=== PATIENT | female | born 1990 | race Caucasian/White ===

== ENCOUNTER 2016-09-15 08:06 | Emergency (ER) | payer MEDICAID ==
--- NOTE | 2016-10-03 15:51 | ER ---
ADMIT: 09/15/2016 RM/LOC: [facility] MR#: [id number] [address] [id number] [place] [address] [address] Emergency Room Report SEX: F AGE: 26 : 1990 DATE: 09/15/2016 This 26-year-old, 19 week female comes to the Emergency Department with abdominal pain primarily in the right upper quadrant, worsened with deep inspiration. Described it as sharp and cramping. See T-sheet for remainder of history and physical. Ultrasound of the right upper quadrant is unremarkable. CBC is 10.6. Electrolytes significant for potassium 2.3. UA is wbc's 10, rbc's 31, and leukocyte esterase 3+, this was kind of a poor specimen, remaining squamous cells. However, I would like to really treat her for UTI with Keflex. Encouraged her to follow up with her junior data analyst this week. DIAGNOSES: 1. Urinary tract infection. 2. Abdominal pain. Maximiliano Gregory MD/ giorgio JOB #: [id number] CC: Maximiliano Gregory MD, Attending Physician Saloni Couch MD, Family Physician
== END 2016-09-15 10:10 | disposition home or self-care (01) ==
LOC: ER 08:06
DX: O23.42 Unspecified infection of urinary tract in pregnancy, second trimester (principal); Z3A.19 19 weeks gestation of pregnancy